=== PATIENT | male | born 1950 | race Caucasian/White ===

== ENCOUNTER 2024-05-01 08:36 | Outpatient (CLI) | payer MEDICARE, SELFPAY ==
--- NOTE | ~2024-05-01 | CT_ITS ---
CT brain wo con Ordering provider: Jazmine Albrecht MD History: 74 years Male with . history of seizures . Comparison: None. Technique: CT of the head without contrast. Radiation reduction technique utilized. DLP is 599.57 mGy . FINDINGS: BRAIN PARENCHYMA AND CSF SPACES: No midline shift, mass effect or hemorrhage. The brain parenchyma a nd CSF spaces are otherwise normal. VISUALIZED PARANASAL SINUSES: Bilateral maxillary sinus disease. Left frontal sinus disease. MASTOIDS: Well aerated. BONES: The bones appear intact. SOFT TISSUES: Visualized nasopharynx is normal. Superficial soft tissues are normal. IMPRESSION: No acute intracranial findings. Reviewed, dictated and finalized at location A.
== END 2024-05-01 08:37 ==
LOC: MICIMG 08:36
PROVIDERS: PCP Family Medicine; Visit Provider Student in an Organized Health Care Education/Training Program
DX: G40.109 Localization-related (focal) (partial) symptomatic epilepsy and epileptic syndromes with simple partial seizures, not intractable, without status epilepticus (principal)
CPT/HCPCS: 70450